=== PATIENT | male | born 1945 | race Caucasian/White ===

== ENCOUNTER 2019-12-07 11:00 | Emergency (ER) | payer OTHER ==
[~2019-12-07] VITALS: Ht 175.3 cm; Wt 74.8 kg
[~2019-12-07 11:00] MED LIST: BACTRIM DS TAB1 EACH PO; ZESTRIL2.5 MG
[2019-12-07 11:08] VITALS: BP 144/84
[2019-12-07] MEDS ORDERED: CLEOCIN HCL150 MG PO (11:29)
[2019-12-07] MEDS ORDERED: PREDNISONE 20 M20 MG PO (11:29)
== END 2019-12-07 11:57 | disposition home or self-care (01) ==
LOC: ER 11:00
DX: K11.20 Sialoadenitis, unspecified (principal); R21 Rash and other nonspecific skin eruption; I10 Essential (primary) hypertension; F17.210 Nicotine dependence, cigarettes, uncomplicated

== ENCOUNTER 2019-12-18 11:22 | Emergency (ER) | payer OTHER ==
[~2019-12-18] VITALS: Ht 175.3 cm; Wt 74.8 kg
[~2019-12-18 11:22] MED LIST changes: +CLEOCIN HCL150 MG PO; +PREDNISONE 20 M20 MG PO
[2019-12-18 13:02] VITALS: BP 127/78
== END 2019-12-18 13:03 | disposition home or self-care (01) ==
LOC: ER 11:22
DX: L42 Pityriasis rosea (principal); I10 Essential (primary) hypertension; F17.210 Nicotine dependence, cigarettes, uncomplicated

== ENCOUNTER 2019-12-31 14:29 | Emergency (ER) | payer OTHER ==
[~2019-12-31] VITALS: Ht 175.3 cm; Wt 74.8 kg
[~2019-12-31 14:29] MED LIST changes: -ZESTRIL2.5 MG; +ZESTRIL2.5 MG PO
[2019-12-31 15:59] LABS: URINE BILIRUBIN NEGATIVE (Negative); URINE BLOOD NEGATIVE (Negative); URINE CLARITY CLEAR; URINE COLOR YELLOW; URINE GLUCOSE-RANDOM* NEGATIVE (Negative); URINE KETONES NEGATIVE (Negative); URINE LEUKOCYTES-REFLEX NEGATIVE (Negative); URINE NITRITE-REFLEX NEGATIVE (Negative); URINE PROTEIN (DIPSTICK) NEGATIVE (Negative); URINE SPECIFIC GRAVITY 1.025 (1.005-1.035); URINE UROBILINOGEN 0.2 E.U./dl (0.2-1.0)
[2019-12-31 16:31] VITALS: BP 140/82
== END 2019-12-31 16:35 | disposition home or self-care (01) ==
LOC: ER 14:29
PROVIDERS: Nurse Practitioner Family
DX: L42 Pityriasis rosea (principal); F17.210 Nicotine dependence, cigarettes, uncomplicated; I10 Essential (primary) hypertension; Z79.899 Other long term (current) drug therapy

== ENCOUNTER 2020-01-03 12:30 | Emergency (ER) | payer OTHER ==
[~2020-01-03] VITALS: Ht 175.3 cm; Wt 74.8 kg
[2020-01-03 15:18] VITALS: BP 124/79
== END 2020-01-03 15:18 | disposition home or self-care (01) ==
LOC: ER 12:30
DX: J06.9 Acute upper respiratory infection, unspecified (principal); R21 Rash and other nonspecific skin eruption; I10 Essential (primary) hypertension; F17.210 Nicotine dependence, cigarettes, uncomplicated; Z79.899 Other long term (current) drug therapy

== ENCOUNTER 2020-04-28 17:40 | Emergency (ER) | payer OTHER ==
[~2020-04-28] VITALS: Ht 170.2 cm; Wt 74.8 kg
[2020-04-28 18:27] LABS: BASOPHILS 0.6 % (0.0-2.0); EOSINOPHILS 0.1 % (0.0-3.0); HEMATOCRIT 44.5 % (42.0-52.0); HEMOGLOBIN 15.3 gm/dL (14.0-18.0); LYMPHOCYTES 8.1 % (24.0-44.0); MCH 33.7 pg (26.0-34.0); MCHC 34.4 g/dL (28.0-37.0); MCV 97.7 fL (80.0-100.0); MONOCYTES 9.3 % (1.0-8.0); PLATELET COUNT 241 thou/uL (150-400); POLYS 81.9 % (36.0-66.0); RBC 4.56 mil/uL (4.50-6.00); RDW 13.5 % (10.5-14.5)
[2020-04-28 18:38] LABS: ANION GAP 11 mmol/L (7-16); BUN 26 mg/dL (7-18); CALCIUM 9.9 mg/dL (8.5-10.1); CHLORIDE 96 mmol/L (98-107); CO2 25 mmol/L (21-32); CREATININE 1.2 mg/dL (0.7-1.3); GLUCOSE 116 mg/dL (74-106); SODIUM 132 mmol/L (136-145)
[2020-04-28 18:48] LABS: ALBUMIN 3.7 g/dL (3.4-5.0); SGOT 42 U/L (15-37); SGPT 47 U/L (30-65); TOTAL BILIRUBIN 0.9 mg/dL (0.2-1.0); TOTAL PROTEIN 7.7 g/dL (6.4-8.2); TROPONIN-I <0.06 ng/mL (<0.06)
[2020-04-28 19:43] VITALS: BP 129/85
--- NOTE | 2020-04-29 07:51 | EKG ---
[facility] [place] [address] ELECTROCARDIOGRAM REPORT Name: BLANCO BEGUM Room #: DEP [facility].#: [id number] Admission: 04/28/20 Attend Phys: Discharge: 04/28/20 Date of : 49 Report #: [id number] THIS REPORT FOR: cc: FAM - No family physician/PCP FAM - No family physician/PCP Efrain Guerra MD [facility] THIS REPORT FOR: //name// [facility] ED Test Date: 2020-04-28 Test Time: 17:51:41 Pat Name: BLANCO BEGUM Department: Room: Gender: [employer]: [facility] : 1945 Requested By: Janine Sanchez Order Number: [id number] MD: Efrain Guerra Measurements Intervals [place] Rate: 108 P: 20 AL: 176 QRS: -12 QRSD: 89 T: 6 QT: 321 QTc: 430 Interpretive Statements Sinus tachycardia Probable anteroseptal infarct, old No previous ECG available for comparison Electronically Signed On 04-29-2020 7:51:32 CDT by Efrain Guerra [email or web address] <ELECTRONICALLY SIGNED> By: Efrain Guerra MD, FAC 04/29/20 075 50 50 Efrain Guerra MD, [facility] /EPI
== END 2020-04-28 19:35 | disposition home or self-care (01) ==
LOC: ER 17:40
PROVIDERS: Physician Assistant
DX: R05 Cough (principal); Z20.828 Contact with and (suspected) exposure to other viral communicable diseases; R50.9 Fever, unspecified; R07.89 Other chest pain; I10 Essential (primary) hypertension; F17.210 Nicotine dependence, cigarettes, uncomplicated; Z79.899 Other long term (current) drug therapy